=== PATIENT | male | born 1985 | race African-American/Black ===

== ENCOUNTER 2018-11-03 16:31 | Inpatient (IN) | payer BC ==
[~2018-11-03] VITALS: Ht 177.8 cm; Wt 182.3 kg
[2018-11-03 19:14] LABS: HEMATOCRIT. 34.7 % (42.0-52.0); HEMOGLOBIN. 11.3 g/dL (14.0-18.0); MEAN CORPUSCULAR HEMOGLOBIN 29.4 pg (28.0-32.0); MEAN CORPUSCULAR VOLUME 90.3 fL (80.0-94.0); MEAN PLATELET VOLUME 10.1 fl (7.4-10.4); PLATELET 298 x1000/uL (130-400); RED BLOOD CELL COUNT 3.85 mill/uL (4.7-6.1); RED CELL DISTRIBUTION WIDTH 14.2 % (11.6-14.6)
[2018-11-03 19:20] LABS: PROTHROMBIN TIME 10.7 sec (9.6-11.0)
[2018-11-03 19:29] LABS: CHLORIDE 91 mEq/L (98-107)
[2018-11-03] MEDS ORDERED: PIPERACILLIN/TAZOBACTAM 3.375GM/50ML PREMIX IV ONE (19:45)
[2018-11-03] MEDS ORDERED: VANCOMYCIN 1 G PREMIX 200 ML IV SCH (19:45)
[2018-11-03] MEDS ORDERED: PIPERACILLIN/TAZ 3.375G PREMIX 50 ML IV SCH ×2 (20:00→23:00)
[2018-11-03 20:11] LABS: PLATELET ESTIMATE NORMAL
[2018-11-03 21:21] LABS: CLARITY URINE TURBID (CLEAR); COLOR URINE YELLOW (YELLOW); KETONES URINE NEGATIVE (NEGATIVE); LEUKOCYTE ESTERASE URINE NEGATIVE (NEGATIVE); NITRITE URINE NEGATIVE (NEGATIVE); OCCULT BLOOD URINE 1+ (NEGATIVE); PROTEIN URINE 2+ (NEGATIVE); UROBILINOGEN URINE 0.2 E.U./dL (0.2-1.0)
[2018-11-03] MEDS ORDERED: SODIUM CHLORIDE 0.9% 1000ML BAG (SEPSIS BOLUS) IV ONE (21:30)
[2018-11-03] MEDS ORDERED: DEXTROSE 50% WATER 50ML SYRINGE IV PRN (22:00)
[2018-11-03] MEDS: BLOOD SUGAR DIAGNOSTIC STRIP TEST SCH (22:22)
[2018-11-03] MEDS: INSULIN LISPRO (MEDIUM DOSE) 100 UNITS/ML SUBCUT SCH (22:30)
[2018-11-03] MEDS ORDERED: ONDANSETRON HCL 4MG/2ML INJ IV PRN (23:00)
[2018-11-03] MEDS ORDERED: MORPHINE SULFATE 2 MG/ML CPJ (NOT FOR IM USE) IV PRN (23:00)
[2018-11-03] MEDS ORDERED: GUAIFENESIN 200MG/10ML SUGAR FREE UDC PO PRN (23:00)
[2018-11-03] MEDS ORDERED: HYDROCODONE/ACETAMINOPHEN 5/325MG TABLET PO PRN (23:00)
[2018-11-03] MEDS ORDERED: DOCUSATE SODIUM 100MG CAPSULE PO PRN (23:00)
[2018-11-04] VITALS (9 sets, daily range): BP systolic 92–120; BP diastolic 48–76
[2018-11-04] MEDS: PIPERACILLIN/TAZ 2.25G PREMIX 50 ML IV SCH ×4 (06:05→22:45)
[2018-11-04] MEDS: SODIUM CHLORIDE 0.9% 1,000 ML IV SCH (06:05)
[2018-11-04] MEDS: BLOOD SUGAR DIAGNOSTIC STRIP TEST SCH ×4 (07:30→21:52)
[2018-11-04 07:54] LABS: CHLORIDE 98 mEq/L (98-107)
[2018-11-04 08:17] LABS: HEMATOCRIT. 31.5 % (42.0-52.0); HEMOGLOBIN. 10.2 g/dL (14.0-18.0); MEAN CORPUSCULAR HEMOGLOBIN 29.1 pg (28.0-32.0); MEAN CORPUSCULAR VOLUME 89.6 fL (80.0-94.0); MEAN PLATELET VOLUME 10.2 fl (7.4-10.4); PLATELET 274 x1000/uL (130-400); RED BLOOD CELL COUNT 3.51 mill/uL (4.7-6.1); RED CELL DISTRIBUTION WIDTH 14.4 % (11.6-14.6)
[2018-11-04 09:15] LABS: PLATELET ESTIMATE NORMAL
[2018-11-04] MEDS: ENOXAPARIN 40MG/0.4ML SYR SUBCUT SCH (09:48)
[2018-11-04] MEDS: INSULIN LISPRO (MEDIUM DOSE) 100 UNITS/ML SUBCUT SCH ×4 (09:53→21:54)
[2018-11-04] MEDS ORDERED: VANCOMYCIN 2,000 MG in DEXT 5% WATER 500 ML IV NR (15:00)
[2018-11-04] MEDS: ACETAMINOPHEN 325MG TABLET PO PRN (19:21)
[2018-11-05] VITALS: BP 99/60
[2018-11-05] MEDS ORDERED: VANCOMYCIN 1250MG in DEXTROSE 5% WATER 250ML IV SCH (02:00)
[2018-11-05] MEDS: SODIUM CHLORIDE 0.9% 1,000 ML IV SCH ×3 (02:51→21:42)
[2018-11-05] MEDS: PIPERACILLIN/TAZ 2.25G PREMIX 50 ML IV SCH ×3 (04:32→19:08)
[2018-11-05] MEDS ORDERED: DEXTROSE 50% WATER 50ML SYRINGE IV PRN (07:15)
[2018-11-05] MEDS: BLOOD SUGAR DIAGNOSTIC STRIP TEST SCH ×4 (07:55→21:30)
[2018-11-05] MEDS ORDERED: METFORMIN HCL 500MG TABLET PO SCH ×2 (08:00)
[2018-11-05] MEDS: ENOXAPARIN 40MG/0.4ML SYR SUBCUT SCH (08:10)
[2018-11-05] MEDS: INSULIN LISPRO 100 UNITS/ML SUBCUT SCH ×4 (08:14→21:29)
[2018-11-05 08:20] VITALS: BP 108/53
[2018-11-05] MEDS: INSULIN GLARGINE UD 100 UNITS/ML SYR SUBCUT SCH ×2 (10:18→21:30)
[2018-11-05 11:35] LABS: CREATINE KINASE 67 IU/L (39-308)
[2018-11-05 12:00] VITALS: BP 152/87
[2018-11-05 16:01] VITALS: BP 128/69
[2018-11-05 20:00] VITALS: BP 108/45
[2018-11-05] MEDS: ACETAMINOPHEN 325MG TABLET PO PRN (20:24)
[2018-11-06] MEDS: PIPERACILLIN/TAZ 2.25G PREMIX 50 ML IV SCH ×3 (00:24→12:58)
[2018-11-06] MEDS: SODIUM CHLORIDE 0.9% 1,000 ML IV SCH ×2 (05:29→08:36)
[2018-11-06 06:00] VITALS: BP 130/68
[2018-11-06] MEDS: BLOOD SUGAR DIAGNOSTIC STRIP TEST SCH ×2 (07:14→12:45)
[2018-11-06 08:00] VITALS: BP 110/67
[2018-11-06] MEDS: ENOXAPARIN 40MG/0.4ML SYR SUBCUT SCH (08:35)
[2018-11-06] MEDS: INSULIN LISPRO 100 UNITS/ML SUBCUT SCH ×2 (08:38→13:03)
[2018-11-06] MEDS ORDERED: SILVER SULFADIAZINE 1% CREAM 50GM TOP SCH (09:00)
[2018-11-06] MEDS: INSULIN GLARGINE UD 100 UNITS/ML SYR SUBCUT SCH (09:25)
[2018-11-06] MEDS ORDERED: VANCOMYCIN 2,000 MG in DEXT 5% WATER 500 ML IV NR (10:00)
[2018-11-06 11:08] VITALS: BP 129/52
[2018-11-06 12:00] VITALS: BP 115/65
[2018-11-07 13:10] LABS: ANTI-NUCLEAR ANTIBODIES DIRECT Negative (Negative)
[2018-11-07 15:11] LABS: ATYPICAL P-ANCA <1:20 titer (Neg:<1:20); CYTOPLASMIC C-ANCA <1:20 titer (Neg:<1:20); PERINUCLEAR P-ANCA <1:20 titer (Neg:<1:20)
[2018-11-08 09:04] LABS: COMPLEMENT C3 185 mg/dL (82-167)
[2018-11-08 11:59] LABS: ANTI-MYELOPEROXIDASE AB < 9.0 U/mL (0.0-9.0); ANTI-PROTEINASE 3 ABS < 3.5 U/mL (0.0-3.5)
== END 2018-11-06 15:00 | disposition home or self-care (01) | DRG 872 ==
LOC: ER 16:31 → EDBEDREQ 19:57 → 5EST 20:22 → EDBEDREQTM 20:27 → EDBEDREQ 20:27 → ENRESERV 20:51 → SUPCPDRO 22:45
PROVIDERS: ADMIT Hospitalist; ATTEND Hospitalist
DX: A41.9 Sepsis, unspecified organism (principal); E87.1 Hypo-osmolality and hyponatremia; L02.31 Cutaneous abscess of buttock; L02.415 Cutaneous abscess of right lower limb; N17.9 Acute kidney failure, unspecified; L03.90 Cellulitis, unspecified; E87.2 Acidosis; Z68.43 Body mass index [BMI] 50.0-59.9, adult; D64.9 Anemia, unspecified; E11.22 Type 2 diabetes mellitus with diabetic chronic kidney disease; E11.65 Type 2 diabetes mellitus with hyperglycemia; E78.00 Pure hypercholesterolemia, unspecified; E78.5 Hyperlipidemia, unspecified; I12.9 Hypertensive chronic kidney disease with stage 1 through stage 4 chronic kidney disease, or unspecified chronic kidney disease; N18.9 Chronic kidney disease, unspecified; E66.01 Morbid (severe) obesity due to excess calories
CPT/HCPCS: 36415; 71045; 76770; 80202; 82550; 82962; 83520; 83605; 84145; 84484; 86038; 86160; 86256; 93005; 93970; 96365; 96368; 99291; J1650; J1815; J2543; J3370; J7030; J7060